=== PATIENT | male | born 1955 | race African-American/Black ===

== ENCOUNTER 2016-11-24 20:43 | Emergency (ER) | payer MEDICARE, OTHER ==
[~2016-11-24] VITALS: Ht 182.9 cm; Wt 150.0 kg
[2016-11-24 20:57] VITALS: Ht 182.9 cm; Wt 150.0 kg
--- NOTE | 2016-11-24 22:14 | RADRPT ---
PROCEDURE: Right knee series CLINICAL INDICATION: Pain status post trauma TECHNIQUE: AP and lateral views of the right knee COMPARISON: None available FINDINGS: Moderate patellofemoral medial and lateral joint compartment osteoarthritis with osteophyte formatio n present. The appearance of either a bipartite patella or a well corticated chronic fracture of th e patella is noted. A moderate knee effusion is present. No acute fractures or dislocations are pr esent. The soft tissues are normal. IMPRESSION: 1. No acute fractures or dislocations. 2. Moderate tricompartmental osteoarthritis. 3. Moderate knee effusion. 4. 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
[2016-11-24] MEDS ORDERED: HYDR-902 PO (23:17)
[2016-11-24] MEDS ORDERED: IBUP800T25 PO (23:17)
--- NOTE | 2016-11-24 23:26 | ERD ---
ER Documentation Chief Complaint Date/Time DATE: 11/24/16 TIME: 23:25 Chief Complaint Right knee pain HPI This is 61-year-old male complains of several years of right knee pain is complaining of some right knee pain exacerbation for the past 3 days. She is gets off-and-on swelling in the knee and pain when he walks feels lots of clicking and sticking when he walks no trauma no shortness of breath no pain in the thigh or swelling in the thigh or swelling in the calf. He says the pain is sharp sometimes worse in the morning when he first wakes up in the first few steps ROS All systems reviewed and are negative except as per history of present illness. Medications Home Meds Active Scripts Hydrocodone/Acetaminophen (Atkinson 10-325 Tablet) 1 Each Tablet, 1 TAB PO Q6H Y for PAIN, #20 TAB Prov:KEVIN BRADLEY DO 11/24/16 Ibuprofen* (Motrin*) 800 Mg Tab, 800 MG PO Q6H Y for PAIN AND OR ELEVATED TEMP, #30 TAB Prov:KEVIN BRADLEY DO 11/24/16 PMhx/Soc Hx Alcohol Use: No Hx Substance Use: No Hx Tobacco Use: No Smoking Status: Unknown if ever smoked FmHx Family History: No coronary disease Physical Exam Vitals Vital Signs Date Time Temp Pulse Resp B/P Pulse Ox O2 Delivery O2 Flow Rate FiO2 11/24/16 21:00 70 21 166/83 92 11/24/16 20:57 69 12 163/75 95 11/24/16 20:57 99.2 72 16 156/79 98 11/24/16 20:55 73 20 153/90 96 Physical Exam Const: Well-developed, well-nourished Head: Atraumatic, normocephalic Eyes: Normal Conjunctiva, PERRLA, EOMI, normal sclera, no nystagmus ENT: Normal External Ears, Nose and Mouth, moist mucus membranes. Neck: Full range of motion. No meningismus, no lymphadenopathy. Resp: Clear to auscultation bilaterally, no wheezing, rhonchi, rales Cardio: Regular rate and rhythm, no murmurs, S1 S2 present Abd: Soft, non tender x 4, non distended. Normal bowel sounds, no guarding or rebound, no pulsitile abdominal masses or bruits Skin: No petechiae or rashes, no ecchymosis , no maculopapular rash Back: No midline or flank tenderness Ext: No cyanosis, or edema, FROM x 4, normal inspection, neurovascularly intact x 4, right knee has some mild effusion with some pain with range of motion there is no signs of erythema or septic joint there is clicking the meniscal joint space Neur: Awake and alert, STR 5/5 x 4, sensation intact x 4, no focal findings, cerebellum intact Psych: Normal Mood and Affect Procedures/MDM PROCEDURE: Right knee series CLINICAL INDICATION: Pain status post trauma TECHNIQUE: AP and lateral views of the right knee COMPARISON: None available FINDINGS: Moderate patellofemoral medial and lateral joint compartment osteoarthritis with osteophyte formation present. The appearance of either a bipartite patella or a well corticated chronic fracture of the patella is noted. A moderate knee effusion is present. No acute fractures or dislocations are present. The soft tissues are normal. IMPRESSION: 1. No acute fractures or dislocations. 2. Moderate tricompartmental osteoarthritis. 3. Moderate knee effusion. 4. 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 We will have him follow-up with his primary Departure Diagnosis: Primary Impression: Osteoarthritis Osteoarthritis location: knee Osteoarthritis type: unspecified Laterality: right Qualified Code: M17.11 - Osteoarthritis of right knee, unspecified osteoarthritis type Additional Impression: Knee pain Laterality: right Chronicity: acute Qualified Code: M25.561 - Acute pain of right knee Condition: Stable Patient Instructions: Osteoarthritis KEVIN BRADLEY DO November 24, 2016 23:26
[2016-11-25 00:43] VITALS: BP 150/88; PULSE 54; RESP 15; TEMP 98.2
== END 2016-11-25 00:44 | disposition home or self-care (01) ==
LOC: E/R 20:43
DX: M17.11 Unilateral primary osteoarthritis, right knee (principal)
CPT/HCPCS: 73560